=== PATIENT | male | born 1995 | race Caucasian/White ===

== ENCOUNTER 2018-10-16 15:27 | Emergency (ER) | payer BC ==
--- NOTE | 2018-10-16 15:57 | EDM.PDOC ---
ED HPI GENERAL MEDICAL PROBLEM - General Chief Complaint: Skin Complaint Stated Complaint: SKIN COMPLAINT/RASH Time Seen by Provider: 10/16/18 15:55 Source of Information: Reports: Patient, RN Notes Reviewed History Limitations: Reports: No Limitations - History of Present Illness INITIAL COMMENTS - FREE TEXT/NARRATIVE: Patient is a 23 year old male who presents to the ED for the evaluation of a skin rash. He states that this rash has been ongoing for around 1 year now. This initially started on his back and shoulders and is worsened when he takes his work clothes off. The patient works in the [employer] and wears [employer] clothing and has his laundry sent to a housecleaner floor for laundering. He states that this has worsened after starting working in the [employer]. He does also note that he get a rash on his face after drinking alcohol. Upon further questioning, he is not sure if one specific type of alcohol aggravates this worse than any other. The rash is spreading to thighs and upper arms too. He also states that he took 3 benadryl today and this has not provided much relief. He does see Enra Pearce for his PCP and has not been evaluated by a merchandise for resale purchasing agent. - Related Data Allergies Allergy/AdvReac Type Severity Reaction Status Date / Time Sulfa (Sulfonamide Allergy Burning Verified 10/16/18 15:42 Antibiotics) Home Meds: Home Meds predniSONE 20 mg PO WITHBREAKFAST #16 tab 10/16/18 [Rx] Past Medical History - Past Health History Medical/Surgical History: Denies Medical/Surgical History Social & Family History - Family History Family Medical History: Noncontributory - Tobacco Use Smoking Status *Q: Never Smoker - Caffeine Use Caffeine Use: Reports: Energy Drinks - Recreational Drug Use Recreational Drug Use: Yes Drug Use in Last 12 Months: No ED ROS GENERAL - Review of Systems Review Of Systems: See Below Constitutional: Reports: No Symptoms HEENT: Reports: No Symptoms Respiratory: Reports: No Symptoms Cardiovascular: Reports: No Symptoms Endocrine: Reports: No Symptoms GI/Abdominal: Reports: No Symptoms : Reports: No Symptoms Musculoskeletal: Reports: No Symptoms Skin: Reports: Pruritis, Rash Neurological: Reports: No Symptoms Psychiatric: Reports: No Symptoms Hematologic/Lymphatic: Reports: No Symptoms Immunologic: Reports: No Symptoms ED EXAM, SKIN/RASH Exam: See Below Exam Limited By: No Limitations General Appearance: Alert, WD/WN, No Apparent Distress Ears: Normal External Exam, Normal TMs Throat/Mouth: Normal Inspection, Normal Lips, Normal Teeth, Normal Gums, Normal Oropharynx, Normal Voice, No Airway Compromise Head: Atraumatic, Normocephalic Neck: Normal Inspection, Supple, Non-Tender, Full Range of Motion Respiratory/Chest: No Respiratory Distress, Lungs Clear, Normal Breath Sounds, No Accessory Muscle Use, Chest Non-Tender Cardiovascular: Normal Peripheral Pulses, Regular Rate, Rhythm, No Murmur Extremities: Normal Inspection, Normal Range of Motion, Non-Tender, No Pedal Edema, Normal Capillary Refill Neurological: Alert, Oriented, Normal Cognition, No Motor/Sensory Deficits Psychiatric: Normal Affect, Normal Mood Skin: Warm, Dry, Intact, Normal Color Location, Skin: Face, Chest, Back, Upper Extremity, Right (shoulders and upper arms), Upper Extremity, Left (shoulders and upper arms), Lower Extremity, Right (thighs), Lower Extremity, Left (thighs), Generalized Characteristics: Maculopapular, Fine, Urticarial, Erythematous Associated features: No: Warmth, Tenderness, Swelling, Induration, Crusting, Weeping Course - Vital Signs Last Recorded V/S: Last Vital Signs Temp 98.5 F 10/16/18 15:42 Pulse 83 10/16/18 15:42 Resp 16 10/16/18 15:42 BP 155/74 H 10/16/18 15:42 Pulse Ox 100 10/16/18 15:42 - Orders/Labs/Meds Meds: Medications Discontinued Medications Generic Name Dose Route Start Last Admin Trade Name Sheng PRN Reason Stop Dose Admin Prednisone 20 mg 10/16/18 16:09 Prednisone PO 10/16/18 16:10 ONETIME ONE Prednisone 20 mg 10/16/18 16:10 Prednisone PO 10/16/18 16:11 ONETIME ONE - Re-Assessments/Exams Free Text/Narrative Re-Assessment/Exam: 10/16/18 16:00 Pt presents to the ED for the evaluation of a rash. This appears to be contact dermatitis in nature. 20mg prednisone will be given in ED and a burst of prednisone to be taken at home for further resolution of urticaria. He was strongly urged to follow up with PCP for a referral to dermatology for possible skin testing. Departure - Departure Time of Disposition: 16:13 Disposition: Home, Self-Care 01 Condition: Fair Clinical Impression: Contact dermatitis Qualifiers: Contact dermatitis type: irritant Contact dermatitis trigger: unspecified trigger Qualified Code(s): L24.9 - Irritant contact dermatitis, unspecified cause - Discharge Information *PRESCRIPTION DRUG MONITORING PROGRAM REVIEWED*: No *COPY OF PRESCRIPTION DRUG MONITORING REPORT IN PATIENT SYEDA: No Prescriptions: predniSONE 20 mg PO WITHBREAKFAST #16 tab Instructions: Contact Dermatitis, Lyzm-od-Orda, Allergy Skin Testing Referrals: Erna Pearce RESIDENTIAL MORTGAGE MANAGER [Primary Care Provider] - Forms: ED Department Discharge Additional Instructions: You have been evaluated in the ED for your skin rash. This is likely due to a contact irritant of undetermined etiology. Please follow up with Erna Pearce for a referral to dermatology for allergy testing and further evaluation. You have been provided with a prescription for prednisone. This has been sent to [facility] in [place]. Please take this as directed. You may take OTC zantac or pepsid for further itch relief. You may also use hydrocortisone cream to largest affected areas. Please return to ED if your symptoms should change or worsen.
[2018-10-16] MEDS ORDERED: predniSONE 20 MG Tab PO ONE ×2 (16:09→16:10)
== END 2018-10-16 16:35 | disposition home or self-care (01) ==
LOC: JD.ED 15:27
DX: L24.9 Irritant contact dermatitis, unspecified cause (principal); Z88.2 Allergy status to sulfonamides
CPT/HCPCS: 99283; A9270

== ENCOUNTER 2019-02-14 19:17 | Emergency (ER) | payer BC ==
[2019-02-14] MEDS ORDERED: Lidocaine 1% 10 ML MDV INJECT ONE (19:35)
--- NOTE | 2019-02-14 20:15 | EDM.PDOC ---
ED HPI GENERAL MEDICAL PROBLEM - General Chief Complaint: ENT Problem Stated Complaint: BIT TONGUE Time Seen by Provider: 02/14/19 19:29 Source of Information: Reports: Patient History Limitations: Reports: No Limitations - History of Present Illness INITIAL COMMENTS - FREE TEXT/NARRATIVE: The patient presents with a laceration to his tongue. He was running up the stairs and he tripped and fell and hit his chin and then cut the right side of his anterior tongue. He did not have any loss of consciousness. He has no teeth injury. He has no chin pain. His tetanus is up to date. Onset: Sudden Duration: Minutes: Location: Reports: Other (tongue) Quality: Reports: Sharp Severity: Mild Improves with: Reports: None Worsens with: Reports: None Context: Reports: Trauma (fell going up the stairs) Associated Symptoms: Reports: No Other Symptoms - Related Data Allergies Allergy/AdvReac Type Severity Reaction Status Date / Time Sulfa (Sulfonamide Allergy Burning Verified 02/14/19 19:27 Antibiotics) Home Meds: Home Meds Amoxicillin 875 mg PO BID #20 tab 02/14/19 [Rx] Past Medical History - Past Health History Medical/Surgical History: Denies Medical/Surgical History - Past Surgical History HEENT Surgical History: Reports: Myringotomy w Tube(s) Social & Family History - Family History Family Medical History: Noncontributory - Tobacco Use Smoking Status *Q: Former Smoker Used Tobacco, but Quit: Yes Month/Year Tobacco Last Used: 10/2017 - Caffeine Use Caffeine Use: Reports: Energy Drinks - Recreational Drug Use Recreational Drug Use: Yes Drug Use in Last 12 Months: No Recreational Drug Type: Reports: Marijuana/Hashish Recreational Drug Use Frequency: Not Used In Over 6 Months ED ROS ENT - Review of Systems Review Of Systems: See Below Constitutional: Reports: No Symptoms HEENT: Reports: Other (Tongue laceration) Respiratory: Reports: No Symptoms Cardiovascular: Reports: No Symptoms Endocrine: Reports: No Symptoms GI/Abdominal: Reports: No Symptoms : Reports: No Symptoms ED EXAM, ENT - Physical Exam Exam: See Below Exam Limited By: No Limitations General Appearance: Alert, No Apparent Distress Ears: Normal External Exam Mouth/Throat: Other (1cm laceration to the right anterior tongue. The laceration is not through and through.) ED ENT PROCEDURES - Laceration/Wound Repair Mouth Lac/wound length in cm: 1 Appearance: Subcutaneous, Clean, Other (through the tongue) Anesthetic Type: Local Local Anesthesia - Lidocaine (Xylocaine): 1% Plain Skin Prep: Saline Exploration/Debridement/Repair: Wound Explored, In a Bloodless Field, Explored to Base Suture Size: 4-0 # of Sutures: 2 Suture Type: Interrupted, Simple, Other (Vicryl) Tetanus Status Addressed: Yes Complications: None Course - Vital Signs Last Recorded V/S: Last Vital Signs Temp 98.3 F 02/14/19 19:27 Pulse 80 02/14/19 19:27 Resp 18 02/14/19 19:27 BP 150/81 H 02/14/19 19:27 Pulse Ox 99 02/14/19 19:27 - Orders/Labs/Meds Meds: Medications Discontinued Medications Generic Name Dose Route Start Last Admin Trade Name Sheng PRN Reason Stop Dose Admin Lidocaine HCl 10 ml 02/14/19 19:35 02/14/19 19:59 Xylocaine 1% INJECT 02/14/19 19:36 10 ml ONETIME ONE Administration Departure - Departure Time of Disposition: 20:15 Disposition: Home, Self-Care 01 Condition: Good Clinical Impression: Fall Qualifiers: Encounter type: initial encounter Qualified Code(s): W19.XXXA - Unspecified fall, initial encounter Tongue laceration Qualifiers: Encounter type: initial encounter Qualified Code(s): S01.512A - Laceration without foreign body of oral cavity, initial encounter - Discharge Information *PRESCRIPTION DRUG MONITORING PROGRAM REVIEWED*: Not Applicable *COPY OF PRESCRIPTION DRUG MONITORING REPORT IN PATIENT SYEDA: Not Applicable Prescriptions: Amoxicillin 875 mg PO BID #20 tab Referrals: Erna Pearce [employer]ACH[employer] ACCESSORIES ATTACHER [Primary Care Provider] - Additional Instructions: Rinse with water after your eat or drink anything with sugar. Mcloud your teeth twice per day. Take the amoxicillin 2 times per day for 10 days. The sutures should dissolve in 10 days. If they fall out sooner that is fine. Please return if you see any sign of infection such as redness, swelling, pain, or drainage.
== END 2019-02-14 20:23 | disposition home or self-care (01) ==
LOC: JD.ED 19:17
DX: S01.512A Laceration without foreign body of oral cavity, initial encounter (principal); Z88.2 Allergy status to sulfonamides; W01.10XA Fall on same level from slipping, tripping and stumbling with subsequent striking against unspecified object, initial encounter
CPT/HCPCS: 41250; 99282; J2001

== ENCOUNTER 2019-02-16 19:07 | Emergency (ER) | payer BC ==
--- NOTE | 2019-02-16 19:40 | EDM.PDOC ---
ED HPI GENERAL MEDICAL PROBLEM - General Chief Complaint: Wound Recheck Stated Complaint: farncois came out Time Seen by Provider: 02/16/19 19:27 Source of Information: Reports: Patient History Limitations: Reports: No Limitations - History of Present Illness INITIAL COMMENTS - FREE TEXT/NARRATIVE: This is a 23-year-old male. He had a laceration to his tongue on and had 2 sutures placed and it. Apparently the sutures fell out last night and he is here to have it rechecked to make sure to doing okay. Part of that laceration is sealed shut and part of it still open. He stayed on liquids only and applesauce today to make certain he didn't get anything in the wound which was a good idea. He denies any swelling he denies any other acute symptoms. It is been no drainage from the laceration. - Related Data Allergies Allergy/AdvReac Type Severity Reaction Status Date / Time Sulfa (Sulfonamide Allergy Burning Verified 02/16/19 19:14 Antibiotics) Home Meds: Home Meds Amoxicillin 875 mg PO BID #20 tab 02/14/19 [Rx] Past Medical History - Past Health History Medical/Surgical History: Denies Medical/Surgical History - Past Surgical History HEENT Surgical History: Reports: Myringotomy w Tube(s) Social & Family History - Family History Family Medical History: Noncontributory - Tobacco Use Smoking Status *Q: Never Smoker - Caffeine Use Caffeine Use: Reports: Energy Drinks - Recreational Drug Use Recreational Drug Use: No ED ROS GENERAL - Review of Systems Review Of Systems: See Below Constitutional: Denies: Fever, Chills HEENT: Reports: Other (As per history of present illness) Respiratory: Reports: No Symptoms Cardiovascular: Reports: No Symptoms Endocrine: Reports: No Symptoms GI/Abdominal: Reports: No Symptoms : Reports: No Symptoms Musculoskeletal: Reports: No Symptoms Skin: Reports: No Symptoms Neurological: Reports: No Symptoms Psychiatric: Reports: No Symptoms Hematologic/Lymphatic: Reports: No Symptoms ED EXAM, SKIN/RASH Exam: See Below Exam Limited By: No Limitations General Appearance: Alert, WD/WN, No Apparent Distress Eye Exam: Bilateral Eye: Normal Inspection Ears: Normal External Exam Nose: Normal Inspection Throat/Mouth: Normal Inspection, Normal Lips, Normal Voice, No Airway Compromise , Other (He has about a 2 cm laceration to the top of his tongue anteriorly, the sutures are gone, it looks clean there is no swelling or evidence of infection, about three fourths of that laceration is sealed about one fourth edematous still were able to open it slightly, there is no foodstuffs in the laceration noted.) Head: Normocephalic Neck: Supple Respiratory/Chest: No Respiratory Distress Back Exam: Full Range of Motion Extremities: Normal Inspection, Normal Range of Motion Neurological: Alert, Oriented Psychiatric: Normal Affect, Normal Mood Skin: Warm, Dry Course - Vital Signs Last Recorded V/S: Last Vital Signs Temp 98.3 F 02/16/19 19:15 Pulse 80 02/16/19 19:15 Resp 15 02/16/19 19:15 BP 134/77 02/16/19 19:15 Pulse Ox 98 02/16/19 19:15 Departure - Departure Time of Disposition: 19:38 Disposition: Home, Self-Care 01 Condition: Good Clinical Impression: Encounter for re-check of laceration wound Laceration of tongue Qualifiers: Encounter type: subsequent encounter Qualified Code(s): S01.512D - Laceration without foreign body of oral cavity, subsequent encounter - Discharge Information *PRESCRIPTION DRUG MONITORING PROGRAM REVIEWED*: Not Applicable *COPY OF PRESCRIPTION DRUG MONITORING REPORT IN PATIENT SYEDA: Not Applicable Instructions: Wound Dehiscence, [id number] Referrals: Erna Pearce, TRAIN CALLER [Primary Care Provider] - Additional Instructions: Stay on liquids and soft foods for the next 48 hours so that the rest of that laceration can seal, if there are any signs of increased swelling or drainage or pain follow-up with your family doctor or return to the ER, continue with your antibiotics until they're finished
== END 2019-02-16 19:45 | disposition home or self-care (01) ==
LOC: JD.ED 19:07
DX: S01.512D Laceration without foreign body of oral cavity, subsequent encounter (principal); W01.10XD Fall on same level from slipping, tripping and stumbling with subsequent striking against unspecified object, subsequent encounter; Z88.2 Allergy status to sulfonamides
CPT/HCPCS: 99281; 99282